=== PATIENT | female | born 2000 | race American Indian/Alaskan Native ===

== ENCOUNTER 2021-02-07 14:41 | Outpatient (CLI) | payer OTHER ==
[2021-02-07] MEDS ORDERED: LACTATED RINGERS 1,000 ML IV ONE (15:59)
[2021-02-07 17:42] VITALS: BP 106/57
== END 2021-02-07 17:52 | disposition home or self-care (01) ==
LOC: TRG 14:41 → APU 14:42 → TRG 17:52
PROVIDERS: ATTEND Obstetrics & Gynecology
DX: O42.913 Preterm premature rupture of membranes, unspecified as to length of time between rupture and onset of labor, third trimester (principal); Z3A.37 37 weeks gestation of pregnancy
CPT/HCPCS: 36415; 59025; 84112; 96360